=== PATIENT | male | born 1935 | race Caucasian/White ===

== ENCOUNTER → 2017-10-03 | Outpatient (CLI) | payer MEDICARE ==
[~2017-10-03] MED LIST: ADVA500A INH; ALBUAER3 INH; AMLO10 PO; ASPI1TAB69 PO; ATEN100T PO; CENTTAB9 PO; CITA20TA4 PO; FLUT1SPR9 EACH NARE; METF500T4 PO; OXYB5TAB8 PO; TAMS0.4C4 PO; TERA5CAP3 PO; TRAZ50TA12 PO
--- NOTE | 2017-10-03 15:56 | RADRPT ---
EXAM DATE/TIME: 10/03/2017 00:00 [place] COMPARISON: No previous studies available for comparison. INDICATIONS : Low back pain TECHNIQUE: Five-station segmental examination of the lower extremities was performed pre and post extercise. Pulsed-cuff waveform tracings and pressures were recorded. Ankle-brachial indices and toe-brachial indices were calculated. PRESSURES (mmHg): Pre Exercise: Brachial (arm): Right 151 Left 142 Ankle: Right 168 Left 159 SUZY: Right 1.11 Left 1.05 TBI: Right 0.77 Left 0.80 Post Exercise: Brachial (arm): Right 155 Not applicable Ankle: Right 187 Left 167 PULSED CUFF WAVEFORMS: Demonstrate normal amplitude bilaterally. CONCLUSION: Unremarkable segmental evaluation of the lower extremities. Tommy Peterson MD on October 03, 2017 at 15:53 Board Certified Radiologist. This report was verified electronically.
== END ==
LOC: HCAV 11:51
DX: M54.5 Low back pain (principal)
CPT/HCPCS: 93924